=== PATIENT | female | born 2000 | race Caucasian/White ===

== ENCOUNTER 2019-11-22 10:18 | Emergency (ER) | payer OTHER ==
[~2019-11-22] VITALS: Ht 165.1 cm; Wt 56.7 kg
[2019-11-22 12:20] VITALS: BP 129/78
== END 2019-11-22 12:20 | disposition home or self-care (01) ==
LOC: ER 10:18
DX: Z03.818 Encounter for observation for suspected exposure to other biological agents ruled out (principal); N93.9 Abnormal uterine and vaginal bleeding, unspecified; R50.9 Fever, unspecified